=== PATIENT | male | born 1990 ===

== ENCOUNTER 2017-07-11 05:20 | Emergency (ER) | payer OTHER ==
--- NOTE | 2017-07-11 05:35 | EDM.PDOCBH ---
ED HPI GENERAL MEDICAL PROBLEM - General Chief Complaint: Drug or Alcohol Abuse Stated Complaint: LAW E[employer]OR[employer]ENT Time Seen by Provider: 07/11/17 05:22 Source of Information: Reports: Patient History Limitations: Reports: No Limitations - History of Present Illness INITIAL COMMENTS - FREE TEXT/NARRATIVE: This is a 26-year-old male. He was brought to the ER by the [place] police because apparently he was in an altercation at a bar and he is under arrest to go to longterm. They brought him here to be cleared medically. He is awake he is alert he knows where he is I do not see any need this time to draw an alcohol level. I talked to the patient he is able to answer questions appropriately and states that he doesn't hurt anywhere. He does appear to have a small contusion to his left forehead. He denies any extremity or back pain denies any facial pain. - Related Data Allergies Allergy/AdvReac Type Severity Reaction Status Date / Time No Known Allergies Allergy Verified 07/11/17 05:25 Home Meds: Home Meds . [No Known Home Meds] 07/11/17 [History] ED ROS GENERAL - Review of Systems Review Of Systems: See Below Constitutional: Reports: No Symptoms HEENT: Reports: No Symptoms Respiratory: Reports: No Symptoms Cardiovascular: Reports: No Symptoms Endocrine: Reports: No Symptoms GI/Abdominal: Reports: No Symptoms : Reports: No Symptoms Musculoskeletal: Reports: No Symptoms Skin: Reports: No Symptoms Neurological: Denies: Headache Psychiatric: Reports: No Symptoms Hematologic/Lymphatic: Reports: No Symptoms ED EXAM, BEHAVIORAL HEALTH - Physical Exam Exam: See Below Exam Limited By: No Limitations General Appearance: Alert, WD/WN, No Apparent Distress Eye Exam: Bilateral Eye: Normal Inspection Ears: Normal External Exam, Normal Canal, Normal TMs Nose: Normal Inspection Throat/Mouth: Normal Inspection, Normal Lips, Normal Voice, No Airway Compromise , Other (No teeth or mouth trauma noted, patient does have slightly slurred speech however he ambulated to the ER and in the ER without difficulty) Head: Other (He has a small contusion to the left forehead noted, there is no scalp lacerations or contusions noted) Neck: Supple, Other (He denies any cervical spine tenderness or paraspinal muscle tenderness) Respiratory/Chest: No Respiratory Distress, Lungs Clear, Normal Breath Sounds Cardiovascular: Regular Rate, Rhythm, No Murmur GI/Abdominal: Soft Back Exam: Normal Inspection, Full Range of Motion Extremities: Normal Inspection, Normal Range of Motion Neurological: Alert, No Motor/Sensory Deficits, Oriented x 3 Psychiatric: Alert Skin Exam: Warm, Dry COURSE, BEHAVIORAL HEALTH COMP - Course Vital Signs: Last Vital Signs Temp 98.4 F 07/11/17 05:21 Pulse 64 07/11/17 05:21 Resp 16 07/11/17 05:21 BP 131/91 H 07/11/17 05:21 Pulse Ox 95 07/11/17 05:21 Departure - Departure Time of Disposition: 05:34 Disposition: Home, Self-Care 01 Condition: Fair Clinical Impression: Alcohol ingestion Forehead contusion Qualifiers: Encounter type: initial encounter Qualified Code(s): S00.83XA - Contusion of other part of head, initial encounter - Discharge Information Forms: ED Department Discharge Additional Instructions: Go and sleep as much as possible, follow up with your family doctor this week as needed or return to the ER if needed
== END 2017-07-11 05:44 | disposition home or self-care (01) ==
LOC: JD.ED 05:20
DX: S00.83XA Contusion of other part of head, initial encounter (principal); Y04.0XXA Assault by unarmed brawl or fight, initial encounter
CPT/HCPCS: 99282; 99283